=== PATIENT | male | born 1960 | race Two or more races ===

== ENCOUNTER 2017-10-09 10:22 | Inpatient (IN) | payer MEDICARE ==
[~2017-10-09] VITALS: Ht 175.3 cm; Wt 108.9 kg
[~2017-10-09 10:22] MED LIST: ACYCLOVIR400 MG ORAL; AUGMENTIN 875-1 EAC1 ORAL; AUGMENTIN TAB875 MG ORAL; NKM; NORCO 5-325 TA1 EACH ORAL; NORCO 7.5-3251 EACH ORAL
[2017-10-09] MEDS ORDERED: UNOBMED (10:49)
[2017-10-09 10:53] VITALS: BP 144/100
[2017-10-09 11:08] LABS: BASOPHILS % (AUTO) 1.2 % (0.0-2.0); EOSINOPHILS % (AUTO) 3.7 % (0.0-3.0); HEMATOCRIT 45.4 % (42.0-52.0); HEMOGLOBIN 15.1 G/DL (14.2-18.0); LYMPHOCYTES % (AUTO) 22.9 % (20.0-45.0); MEAN CORPUSCULAR VOLUME 89 FL (80-99); MONOCYTES % (AUTO) 8.3 % (1.0-10.0); NEUTROPHILS % (AUTO) 63.9 % (45.0-75.0); PLATELET COUNT 214 K/UL (150-450); RED BLOOD COUNT 5.09 M/UL (4.70-6.10); RED CELL DISTRIBUTION WIDTH 13.4 % (11.6-14.8); WHITE BLOOD COUNT 8.4 K/UL (4.8-10.8)
[2017-10-09] MEDS ORDERED: Clindamycin 300mg/ml vial inj IV ONE (11:15)
[2017-10-09 11:22] LABS: INR 1.2 (0.9-1.1)
[2017-10-09 11:30] LABS: ANION GAP 12 mmol/L (5-15); BLOOD UREA NITROGEN 22 mg/dL (7-18); CALCIUM 8.9 MG/DL (8.5-10.1); CARBON DIOXIDE 22 MMOL/L (21-32); CHLORIDE 107 MMOL/L (98-107); POTASSIUM 3.7 MMOL/L (3.5-5.1); SODIUM 141 MMOL/L (136-145)
[2017-10-09 11:46] LABS: ALANINE AMINOTRANSFERASE 49 U/L (12-78); ALBUMIN 3.8 G/DL (3.4-5.0); ALBUMIN/GLOBULIN RATIO 0.8 (1.0-2.7); ALKALINE PHOSPHATASE 138 U/L (46-116); ASPARTATE AMINO TRANSFERASE 44 U/L (15-37); BILIRUBIN,TOTAL 1.1 MG/DL (0.2-1.0); CKMB 4.8 NG/ML (0.0-3.6); CREATINE KINASE 622 U/L (26-308)
[2017-10-09 11:48] LABS: BILIRUBIN,DIRECT 0.4 MG/DL (0.0-0.3)
[2017-10-09] MEDS ORDERED: Nitroglycerin 2% oint pkt TOPIC ONE (12:15)
--- NOTE | 2017-10-09 12:29 | Diagnostic Imaging Report ---
EXAM: XR Chest, 1 View CLINICAL HISTORY: SOB TECHNIQUE: Frontal view of the chest. COMPARISON: No relevant prior studies available. FINDINGS: Lungs: No consolidation. Pleural space: Unremarkable. No pneumothorax. Heart: Cardiomegaly. Mediastinum: Unremarkable. Bones/joints: No acute fracture. IMPRESSION: No acute cardiopulmonary disease.
[2017-10-09 12:55] VITALS: BP 142/121
--- NOTE | 2017-10-09 13:58 | Emergency Room Report ---
History of Present Illness General Chief Complaint: Dyspnea/Respdistress Source: Patient Present Illness [facility] This patient states that for the past 4 months he has had an infection in his right ear. This is a separate complaint. He states he has seen his primary care physician he did give them some topical drops that were antibiotics that did not work. He also complains of shortness of breath and dyspnea on exertion for the past month. He states that the symptoms are worse at night. He is also noted over the past week that he has developed swelling in both of his legs. He denies recent illness. He denies cough or congestion. He denies fever or chills. He denies chest pain or abdominal pain. He has no other complaints. Allergies: Coded Allergies: No Known Allergies (Unverified , 09/21/12) Patient History Past Medical History: see triage record, other - psoriasis Social History: Denies: smoking, alcohol use, drug use Reviewed Nursing Documentation: PMH: Agreed; PSxH: Agreed Nursing Documentation-PMH Past Medical History: No Stated History Hx Cardiac Problems: No Hx Cancer: No Hx Gastrointestinal Problems: Yes Review of Systems All Other Systems: negative except mentioned in HPI Physical Exam Vital Signs Date Time Temp Pulse Resp B/P (MAP) Pulse Ox O2 Delivery O2 Flow Rate FiO2 10/09/17 10:26 97.3 105 18 158/82 98 Room Air 97.3 Sp02 EP Interpretation: reviewed, normal General Appearance: no apparent distress, alert, GCS 15, non-toxic Head: normocephalic, atraumatic Eyes: bilateral eye normal inspection, bilateral eye PERRL ENT: hearing grossly normal, normal pharynx, no angioedema, normal voice Neck: full range of motion, supple/symm/no masses Respiratory: chest non-tender, lungs clear, normal breath sounds, no respiratory distress, no retraction, no accessory muscle use, speaking full sentences Cardiovascular #1: no edema, tachycardia, irregularly irregular Gastrointestinal: normal bowel sounds, non tender, soft, non-distended, no guarding, no rebound Rectal: deferred Musculoskeletal: back normal, normal range of motion, non-tender Neurologic: alert, oriented x3, responsive, motor strength/tone normal, sensory intact, speech normal Psychiatric: judgement/insight normal, memory normal, mood/affect normal, no suicidal/homicidal ideation Skin: normal color, no rash, warm/dry, well hydrated Medical Decision Making Diagnostic Impression: Primary Impression: CHF (congestive heart failure) Additional Impressions: Atrial fibrillation with RVR Cardiomegaly ER Course This patient has a new diagnosis of atrial fibrillation. He also has a slightly rapid ventricular response with rates in the low 100s. He is also found to have significant cardiomegaly with physical exam evidence of right- sided heart failure. I'm concerned that this patient possibly had a myocardial infarction in the past month. Troponin is indeterminate. This patient will be admitted to telemetry for further evaluation and treatment by cardiology. Laboratory Tests Test 10/09/17 10:50 White Blood Count 8.4 K/UL (4.8-10.8) Red Blood Count 5.09 M/UL (4.70-6.10) Hemoglobin 15.1 G/DL (14.2-18.0) Hematocrit 45.4 % (42.0-52.0) Mean Corpuscular Volume 89 FL (80-99) Mean Corpuscular Hemoglobin 29.7 PG (27.0-31.0) Mean Corpuscular Hemoglobin Concent 33.3 G/DL (32.0-36.0) Red Cell Distribution Width 13.4 % (11.6-14.8) Platelet Count 214 K/UL (150-450) Mean Platelet Volume 7.5 FL (6.5-10.1) Neutrophils (%) (Auto) 63.9 % (45.0-75.0) Lymphocytes (%) (Auto) 22.9 % (20.0-45.0) Monocytes (%) (Auto) 8.3 % (1.0-10.0) Eosinophils (%) (Auto) 3.7 % (0.0-3.0) H Basophils (%) (Auto) 1.2 % (0.0-2.0) Prothrombin Time 12.4 SEC (9.30-11.50) H Prothrombin Time INR 1.2 (0.9-1.1) H PTT 27 SEC (23-33) Sodium Level 141 MMOL/L (136-145) Potassium Level 3.7 MMOL/L (3.5-5.1) Chloride Level 107 MMOL/L (98-107) Carbon Dioxide Level 22 MMOL/L (21-32) Anion Gap 12 mmol/L (5-15) Blood Urea Nitrogen 22 mg/dL (7-18) H Creatinine 1.0 MG/DL (0.55-1.30) Estimate Glomerular Filtration Rate > 60 mL/min (>60) Glucose Level 114 MG/DL (74-106) H Calcium Level 8.9 MG/DL (8.5-10.1) Total Bilirubin 1.1 MG/DL (0.2-1.0) H Direct Bilirubin 0.4 MG/DL (0.0-0.3) H Aspartate Amino Transferase (AST) 44 U/L (15-37) H Alanine Aminotransferase (ALT) 49 U/L (12-78) Alkaline Phosphatase 138 U/L (46-116) H Total Creatine Kinase 622 U/L (26-308) H Creatine Kinase MB 4.8 NG/ML (0.0-3.6) H Creatine Kinase MB Relative Index 0.7 Troponin I 0.039 ng/mL (0.000-0.056) Pro-B-Type Natriuretic Peptide 2352 pg/mL (0-125) H Total Protein 8.3 G/DL (6.4-8.2) H Albumin 3.8 G/DL (3.4-5.0) Globulin 4.5 g/dL Albumin/Globulin Ratio 0.8 (1.0-2.7) L EKG Diagnostic Results Rate: normal Rhythm: other - Atrial fibrillation ST Segments: no acute changes Rhythm Strip Diag. Results EP Interpretation: yes Rate: 100's Rhythm: no PVC's, other - PVC's, A.fib Chest X-Ray Diagnostic Results Chest X-Ray Diagnostic Results : Chest X-Ray Ordered: Yes # of Views/Limited/Complete: 1 View Indication: Shortness of Breath EP Interpretation: Yes Interpretation: other - Cardiomegaly Last Vital Signs Date Time Temp Pulse Resp B/P (MAP) Pulse Ox O2 Delivery O2 Flow Rate FiO2 10/09/17 12:55 97.8 96 28 142/121 96 Room Air 97.8 Disposition: ADMITTED INPATIENT Condition: Serious Referrals: NON PHYSICIAN (PCP) Cindy Marie DO Oct 09, 2017 13:58
[2017-10-09 14:00] VITALS: BP 121/96
[2017-10-09] MEDS ORDERED: dilTIAZem HCl 30mg tab ORAL ONE (14:00)
[2017-10-09 16:01] VITALS: BP 134/82
[2017-10-09 17:33] VITALS: BP 139/80
[2017-10-09 20:00] VITALS: BP 152/95
[2017-10-09] MEDS ORDERED: NAPROXEN250 M1 PO (20:01)
[2017-10-09] MEDS ORDERED: Heparin 5000 units/ml inj SUBQ SCH (21:00)
--- NOTE | 2017-10-09 21:40 | History & Physical ---
History and Physical History & Physicial [id number] afib with rvr chf obesity htn severe otitis externa echo clinda and otic drops rate control ac per cards Alia Wilson DO Oct 09, 2017 21:40
[2017-10-09] MEDS ORDERED: Metoprolol Tartrate 50mg tab ORAL SCH (22:30)
[2017-10-09] MEDS ORDERED: Metoprolol Tartrate 10 MG in D5W 55 ML IVPB SCH (22:30)
[2017-10-09] MEDS ORDERED: Heparin 5000 units/ml inj IV SCH (22:30)
--- NOTE | 2017-10-09 22:45 | History and Physical Report ---
DATE OF ADMISSION: 10/09/2017 REASON FOR ADMISSION: Shortness of breath, lower extremity swelling. HISTORY OF PRESENT ILLNESS: This is a 57-year-old gentleman, who states he developed severe pain in his right ear, lower extremity swelling, and shortness of breath. He came to the emergency room, was found to be in atrial fibrillation. He says he has no history of atrial fibrillation. He has a history of hypertension, no diabetes, suspected underlying obstructive sleep apnea, but does not use CPAP at night. He was given some ear drops for his ear, but he has got purulent bloody discharge at this time. MEDICATIONS: Pre-hospital and present medications are reviewed, reconciled, documented in electronic medical record by dose, frequency, and route. SOCIAL HISTORY: Negative for tobacco. Occasional alcohol. No drugs. FAMILY HISTORY: Noncontributory. PHYSICAL EXAMINATION: At the time my exam, he is alert. He is oriented. He is in no acute respiratory distress. His oropharynx is moist. He has poor dentition. He has purulent bloody discharge from his right ear. His neck is supple. He is obese. His lungs have bilateral crackles. His heart is irregularly irregular with an audible murmur. Abdomen is soft, nontender. Positive bowel sounds. Extremities with positive lower extremity edema. LABORATORY AND DIAGNOSTIC DATA: White count 8.4, hemoglobin 15.1, and platelets are 214,000. His sodium is 141, potassium 3.7, chloride 7, bicarb 22, BUN 22, creatinine 1, glucose is 114. First troponin is 0.039. His alkaline phosphatase is 138. BNP is mildly elevated at 2352. His chest x-ray from today demonstrates as negative. ASSESSMENT AND PLAN: 1. Severe otitis externa. 2. Atrial fibrillation. 3. Mild congestive heart failure. 4. Obesity. 5. Suspect underlying obstructive sleep apnea. 6. Hypertension. PLAN: For the patient, we will start him on antibiotics as well as otic drops. We will need ENT evaluation. Watch I's and O's, 2D echo, rate control, and we will discuss anticoagulation with Dr. Collins, who has been called to see the patient in consultation. He apparently did have AFib and RVR when he was admitted, given diltiazem x1 and we will monitor his rate and control it as needed. Alia Wilson D.O. DR: DORA JOB#: [id number] CC:
--- NOTE | 2017-10-09 23:45 | Consultation ---
DATE OF CONSULTATION: 10/09/2017 CARDIOLOGY CONSULTATION CONSULTING PHYSICIAN: Joaquín Collins M.D. REQUESTING PHYSICIAN: Aron More M.D. REASON FOR CONSULTATION: Atrial fibrillation with increased ventricular response. HISTORY OF PRESENT ILLNESS: This is a male, age 57, with no known prior cardiac history. He has had a right ear infection for some time and has not had response to topical antibiotics. Over the past week, he has developed progressive shortness of breath and decreased exercise tolerance progressing to shortness of breath at rest. His symptoms appear to be worse at night when lying flat and have been accompanied by progressive leg swelling in the past week as well. He denies chest pressure. He denies apparent palpitations. He has not had any recent upper respiratory illness, no fevers, no chills. He denies nausea, vomiting, or diarrhea, or genitourinary symptoms. PAST MEDICAL HISTORY: Psoriasis. MEDICATIONS: Prior to admission, none. ALLERGIES: None. SOCIAL HISTORY: Denies smoking, alcohol, or substance abuse. REVIEW OF SYSTEMS: A 10-point review of systems performed, all systems negative other than noted above. PHYSICAL EXAMINATION: GENERAL: He is in moderate distress with shortness of breath. VITAL SIGNS: Blood pressure 158/82, pulse 105, respirations 18, and afebrile. HEENT: Normocephalic, atraumatic. Conjunctivae pink. Oropharynx clear. Mucous membranes moist. NECK: Supple. Jugular venous pressure difficult to assess due to body habitus. LUNGS: Diminished breath sounds. Few rales. CARDIAC: Irregularly irregular rhythm. Normal S1, S2 with no obvious murmur, rub, or gallop. ABDOMEN: Normal S1, S2 with no obvious murmur, rub, or gallop. ABDOMEN: Soft, nontender. No ascites. EXTREMITIES: With 1+ bilateral pitting edema. NEUROLOGIC: Symmetric strength. No asterixis. LABORATORY AND DIAGNOSTIC DATA: Chest x-ray, cardiomegaly, mildly increased pulmonary venous pressures. EKG, atrial fibrillation, rapid ventricular rate, nonspecific ST-T wave changes. Atrial fibrillation, occasional PVC, nonspecific ST-T wave change. Troponin negative. White count 8.4, hemoglobin 15.1, troponin 0.039. Pro-natriuretic peptide 2300. IMPRESSION: 1. New onset atrial fibrillation. 2. Acute diastolic congestive heart failure, possible recent myocardial infarction and ongoing myocardial ischemia. PLAN: 1. Cardiac monitoring. Anticoagulation, for cardioembolic prophylaxis. 2. Beta-raul for rate control. 3. Echocardiogram. 4. Lipid panel. 5. Check venous duplex scan. 6. Thyroid function. 7. Diuresis with caution. 8. Further recommendations to follow once diagnostic studies available. Joaquín Collins M.D. DR: JESICA JOB#: [id number] CC:
[2017-10-10] VITALS: BP 136/72
[2017-10-10 00:33] LABS: BASOPHILS % (AUTO) 1.1 % (0.0-2.0); HEMATOCRIT 44.5 % (42.0-52.0); HEMOGLOBIN 14.6 G/DL (14.2-18.0); LYMPHOCYTES % (AUTO) 24.7 % (20.0-45.0); MEAN CORPUSCULAR VOLUME 89 FL (80-99); MONOCYTES % (AUTO) 7.1 % (1.0-10.0); NEUTROPHILS % (AUTO) 61.2 % (45.0-75.0); PLATELET COUNT 198 K/UL (150-450); RED BLOOD COUNT 5.03 M/UL (4.70-6.10); RED CELL DISTRIBUTION WIDTH 13.7 % (11.6-14.8)
[2017-10-10] MEDS: Heparin 25,000u/D5W 500ml 500 ML IV SCH ×2 (00:55→14:30)
[2017-10-10 04:00] VITALS: BP 129/85
[2017-10-10 07:50] LABS: EOSINOPHILS % (AUTO) 4.3 % (0.0-3.0); HEMATOCRIT 44.6 % (42.0-52.0); HEMOGLOBIN 14.6 G/DL (14.2-18.0); MEAN CORPUSCULAR VOLUME 90 FL (80-99); MONOCYTES % (AUTO) 7.6 % (1.0-10.0); NEUTROPHILS % (AUTO) 63.1 % (45.0-75.0); PLATELET COUNT 193 K/UL (150-450); RED BLOOD COUNT 4.98 M/UL (4.70-6.10); RED CELL DISTRIBUTION WIDTH 13.9 % (11.6-14.8); WHITE BLOOD COUNT 8.1 K/UL (4.8-10.8)
[2017-10-10 08:22] LABS: ANION GAP 12 mmol/L (5-15); BLOOD UREA NITROGEN 24 mg/dL (7-18); CALCIUM 8.9 MG/DL (8.5-10.1); CARBON DIOXIDE 23 MMOL/L (21-32); CHLORIDE 105 MMOL/L (98-107); CREATININE 1.2 MG/DL (0.55-1.30); POTASSIUM 4.3 MMOL/L (3.5-5.1); SODIUM 140 MMOL/L (136-145)
[2017-10-10] MEDS: Metoprolol 25mg tab ORAL SCH ×2 (08:22→20:49)
[2017-10-10] MEDS: Cortisporin OTIC Susp - 10ml RIGHT EAR SCH ×4 (08:22→20:49)
[2017-10-10 08:29] VITALS: BP 125/95
[2017-10-10 08:34] LABS: ALANINE AMINOTRANSFERASE 51 U/L (12-78); ALBUMIN 3.5 G/DL (3.4-5.0); ALKALINE PHOSPHATASE 135 U/L (46-116); ASPARTATE AMINO TRANSFERASE 41 U/L (15-37); BILIRUBIN,DIRECT 0.4 MG/DL (0.0-0.3); BILIRUBIN,TOTAL 1.2 MG/DL (0.2-1.0)
[2017-10-10] MEDS ORDERED: NS 275ml ONE (10:07)
[2017-10-10] MEDS ORDERED: Tubing IV Secondary IV ONE (10:07)
[2017-10-10 12:00] VITALS: BP 139/97
[2017-10-10 16:00] VITALS: BP 136/98
--- NOTE | 2017-10-10 19:56 | Pulmonology Progress Note ---
Assessment/Plan Assessment/Plan 1. Severe otitis externa. 2. Atrial fibrillation. 3. Mild congestive heart failure. 4. Obesity. 5. Suspect underlying obstructive sleep apnea. 6. Hypertension. 7. positive troponin heparin per rx abx for otitis diuresis rate control troponins trending down pain control fu echo when available duplex pending as well Subjective Constitutional: Reports: no symptoms HEENT: Repors: discharge Respiratory: Reports: no symptoms Cardiovascular: Reports: no symptoms Gastrointestinal/Abdominal: Reports: no symptoms Psychiatric: Reports: no symptoms Hematologic: Reports: no symptoms Allergies: Coded Allergies: No Known Allergies (Unverified , 09/21/12) Subjective still with afib rate controlled strated on heparin no bleeding reduced drainage from right ear tolerting po no cp decreased edema Objective Last 24 Hour Vital Signs Date Time Temp Pulse Resp B/P (MAP) Pulse Ox O2 Delivery O2 Flow Rate FiO2 10/10/17 16:00 88 10/10/17 16:00 97.2 86 22 136/98 (111) 96 97.2 10/10/17 12:00 97.3 79 22 139/97 (111) 96 97.3 10/10/17 12:00 86 10/10/17 09:08 Nasal Cannula 2.0 10/10/17 08:29 97.7 84 20 125/95 (105) 96 97.7 10/10/17 08:22 84 125/95 10/10/17 08:00 84 10/10/17 04:00 97.3 92 22 129/85 (100) 100 97.3 10/10/17 04:00 80 10/10/17 01:14 Nasal Cannula 3.0 10/10/17 00:00 98.1 92 17 136/72 (93) 95 98.1 10/10/17 00:00 93 10/10/17 00:00 97 136/72 10/09/17 23:32 97 136/72 10/09/17 20:00 110 10/09/17 20:00 96.4 64 20 152/95 (114) 99 96.4 Intake and Output 10/09/17 10/10/17 19:00 07:00 Intake Total 20 ml 593.41 ml Output Total 1000 ml Balance 20 ml -406.59 ml Intake Oral 20 ml 240 ml IV Total 353.41 ml Output Urine Total 1000 ml General Appearance: WD/WN HEENT: atraumatic, other - right ear purulent drainage Respiratory/Chest: lungs clear Cardiovascular: irregularly irregular, edema Abdomen: no organomegaly, non distended Skin: no rash Neurologic/Psychiatric: no motor/sensory deficits, abnormal gait, alert, oriented x 3 Laboratory Tests 10/10/17 00:15: White Blood Count 9.0, Red Blood Count 5.03, Hemoglobin 14.6, Hematocrit 44.5, Mean Corpuscular Volume 89, Mean Corpuscular Hemoglobin 29.0, Mean Corpuscular Hemoglobin Concent 32.8, Red Cell Distribution Width 13.7, Platelet Count 198, Mean Platelet Volume 7.7, Neutrophils (%) (Auto) 61.2, Lymphocytes (%) (Auto) 24.7, Monocytes (%) (Auto) 7.1, Eosinophils (%) (Auto) 6.0H, Basophils (%) (Auto ) 1.1, Activated Partial Thromboplast Time 53H 10/10/17 07:05: White Blood Count 8.1, Red Blood Count 4.98, Hemoglobin 14.6, Hematocrit 44.6, Mean Corpuscular Volume 90, Mean Corpuscular Hemoglobin 29.2, Mean Corpuscular Hemoglobin Concent 32.6, Red Cell Distribution Width 13.9, Platelet Count 193, Mean Platelet Volume 9.3, Neutrophils (%) (Auto) 63.1, Lymphocytes (%) (Auto) 24.0, Monocytes (%) (Auto) 7.6, Eosinophils (%) (Auto) 4.3H, Basophils (%) (Auto ) 1.0, Activated Partial Thromboplast Time 69H, Sodium Level 140, Potassium Level 4.3, Chloride Level 105, Carbon Dioxide Level 23, Anion Gap 12, Blood Urea Nitrogen 24H, Creatinine 1.2, Estimat Glomerular Filtration Rate > 60, Glucose Level 113H, Calcium Level 8.9, Magnesium Level 1.9, Total Bilirubin 1.2H , Direct Bilirubin 0.4H, Aspartate Amino Transf (AST/SGOT) 41H, Alanine Aminotransferase (ALT/SGPT) 51, Alkaline Phosphatase 135H, Troponin I 0.027, Pro -B-Type Natriuretic Peptide 1716H, Total Protein 8.0, Albumin 3.5, Thyroid Stimulating Hormone (TSH) 1.368 10/10/17 15:00: Troponin I 0.008 Current Medications Medications (Trade) Dose Ordered Sig/Mary Carmen Route PRN Reason Start Time Stop Time Status Last Admin Dose Admin Aspirin (ASA) 325 mg DAILY ORAL 10/10/17 09:00 11/09/17 08:59 10/10/17 08:20 Clindamycin HCl/ Dextrose 50 ml @ 100 mls/hr Q8H IV 10/09/17 23:00 10/16/17 22:59 10/10/17 14:10 Heparin Sodium/ Dextrose 500 ml @ 39.19 mls/ hr adjust per protocol IV 10/10/17 00:30 11/09/17 00:29 10/10/17 14:30 Metoprolol Tartrate (Lopressor) 25 mg Q12HR ORAL 10/10/17 09:00 11/09/17 08:59 10/10/17 08:22 Neomycin/ Polymyxin/ Hydrocortisone (Cortisporin OTIC) 4 drop FOUR TIMES A DAY RIGHT EAR 10/10/17 09:00 10/17/17 08:59 10/10/17 17:05 Alia Wilson DO Oct 10, 2017 19:56
[2017-10-10 20:00] VITALS: BP 137/85
[2017-10-10] MEDS: Eliquis 2.5mg tablet ORAL SCH (23:32)
[2017-10-11] VITALS: BP 121/85
--- NOTE | 2017-10-11 00:31 | Progress Note ---
DATE: 10/10/2017 CARDIOLOGY PROGRESS NOTE SUBJECTIVE: The patient remains in atrial fibrillation. Early this morning, he had low rate with a pause of about 3.5 second. He was asymptomatic. He had received his oral dose of beta-raul. The patient remains on IV heparin for cardioembolic prophylaxis. He continues to have drainage from his right ear with associated pain. His shortness of breath is better, but has not resolved. OBJECTIVE: VITAL SIGNS: Blood pressure 137/85, pulse 90, respirations 20 and afebrile. LUNGS: Bilateral breath sounds with few rales. HEART: Irregularly irregular rhythm. Normal S1 and S2. ABDOMEN: Soft. EXTREMITIES: No edema. LABORATORY AND DIAGNOSTIC DATA: White count 8.1 and hemoglobin 14.6. Potassium 4.3, BUN 24, and creatinine 1.2. Pro-natriuretic peptide 1700. Troponin remain negative. TSH 1.3. IMPRESSION: 1. Acute otitis externa. 2. Atrial fibrillation with variable ventricular rate, newly diagnosed, chronicity unclear. 3. Acute diastolic congestive heart failure. 4. Hypertensive heart disease, still with elevated blood pressures. PLAN: 1. Lower dose of beta-raul in view of episodes of bradyarrhythmia. 2. Antibiotics per primary care physician. 3. Transition from IV heparin to oral Apixaban for long-term cardioembolic prophylaxis. 4. Consider cardioversion effort in 6 weeks. 5. Advance antihypertensive therapy. 6. Discontinue aspirin to decrease bleeding risk in this clinical setting. 7. Adjust diuretic dosing based on clinical parameters. Joaquín Collins M.D. DR: KIANA JOB#: [id number] CC:
[2017-10-11] MEDS: Heparin 25,000u/D5W 500ml 500 ML IV SCH ×3 (02:39→17:28)
[2017-10-11 04:00] VITALS: BP 141/79
[2017-10-11] MEDS ORDERED: Heparin 5000 units/ml inj IV ONE (05:15)
[2017-10-11] MEDS ORDERED: Heparin 25,000u/D5W 500ml 500 ML IV SCH (05:15)
[2017-10-11 08:00] VITALS: BP 139/74
[2017-10-11] MEDS: Metoprolol 25mg tab ORAL SCH ×2 (08:32→20:14)
[2017-10-11] MEDS: Eliquis 2.5mg tablet ORAL SCH ×2 (08:32→17:31)
[2017-10-11] MEDS: Cortisporin OTIC Susp - 10ml RIGHT EAR SCH ×4 (08:33→20:16)
[2017-10-11] MEDS ORDERED: Lisinopril 20mg tab ORAL SCH (09:00)
[2017-10-11 12:00] VITALS: BP 130/83
--- NOTE | 2017-10-11 13:09 | Pulmonology Progress Note ---
Assessment/Plan Assessment/Plan Assessment/Plan 1. Severe otitis externa. 2. Atrial fibrillation, RVR 3. Mild congestive heart failure. 4. Obesity. 5. Suspect underlying obstructive sleep apnea. 6. Hypertension. 7. troponin not significant heparin per rx; change to NOAC per cardiology abx for otitis rate control fu echo when available duplex pending as well Subjective Constitutional: Denies: fever, chills Respiratory: Denies: shortness of breath Cardiovascular: Denies: chest pain Allergies: Coded Allergies: No Known Allergies (Unverified , 09/21/12) Objective Last 24 Hour Vital Signs Date Time Temp Pulse Resp B/P (MAP) Pulse Ox O2 Delivery O2 Flow Rate FiO2 10/11/17 12:00 97.1 80 18 130/83 (99) 96 97.1 10/11/17 09:00 Nasal Cannula 2.0 10/11/17 08:32 139/74 10/11/17 08:32 95 139/74 10/11/17 08:00 97 10/11/17 08:00 98.1 95 20 139/74 (95) 99 98.1 10/11/17 04:00 89 10/11/17 04:00 98.0 81 20 141/79 (99) 98 98.0 10/11/17 00:00 85 10/11/17 00:00 97.0 85 26 121/85 (97) 96 97.0 10/10/17 21:00 Nasal Cannula 3.0 10/10/17 20:49 100 137/85 10/10/17 20:00 100 10/10/17 20:00 98.0 90 20 137/85 (102) 98 98.0 10/10/17 16:00 88 10/10/17 16:00 97.2 86 22 136/98 (111) 96 97.2 Intake and Output 10/10/17 10/11/17 19:00 07:00 Intake Total 881.09 ml 836.828 ml Output Total 500 ml 2190 ml Balance 381.09 ml -1353.172 ml Intake Oral 400 ml 350 ml IV Total 481.09 ml 486.828 ml Output Urine Total 500 ml 2190 ml # Voids 2 Objective R ear dc General Appearance: no acute distress Respiratory/Chest: lungs clear Cardiovascular: normal rate, irregularly irregular Laboratory Tests 10/10/17 15:00: Troponin I 0.008 10/10/17 23:35: Troponin I 0.019 10/11/17 04:10: Activated Partial Thromboplast Time 58H 10/11/17 11:20: Activated Partial Thromboplast Time 120H Current Medications Medications (Trade) Dose Ordered Sig/Mary Carmen Route PRN Reason Start Time Stop Time Status Last Admin Dose Admin Apixaban (Eliquis) 5 mg BID ORAL 10/10/17 23:30 11/09/17 23:29 10/11/17 08:32 Clindamycin HCl/ Dextrose 50 ml @ 100 mls/hr Q8H IV 10/09/17 23:00 10/16/17 22:59 10/11/17 06:57 Furosemide (Lasix) 20 mg DAILY IV 10/10/17 23:00 11/09/17 22:59 10/11/17 08:32 Heparin Sodium/ Dextrose 500 ml @ 37.013 mls/ hr adjust per protocol IV 10/11/17 12:45 11/10/17 12:44 10/11/17 13:02 Lisinopril (Prinivil) 20 mg DAILY ORAL 10/11/17 09:00 11/10/17 08:59 10/11/17 08:32 Metoprolol Tartrate (Lopressor) 25 mg Q12HR ORAL 10/10/17 09:00 11/09/17 08:59 10/11/17 08:32 Neomycin/ Polymyxin/ Hydrocortisone (Cortisporin OTIC) 4 drop FOUR TIMES A DAY RIGHT EAR 10/10/17 09:00 10/17/17 08:59 10/11/17 08:33 Potassium Chloride (K-Dur) 20 meq DAILY ORAL 10/11/17 09:00 11/10/17 08:59 10/11/17 08:32 Aron More MD Oct 11, 2017 13:09
[2017-10-11 16:00] VITALS: BP 127/94
[2017-10-11 20:00] VITALS: BP 135/101
[2017-10-12] VITALS: BP 141/91
[2017-10-12 04:00] VITALS: BP 132/89
[2017-10-12 04:12] LABS: BASOPHILS % (AUTO) 1.1 % (0.0-2.0); EOSINOPHILS % (AUTO) 5.9 % (0.0-3.0); HEMATOCRIT 44.6 % (42.0-52.0); HEMOGLOBIN 14.5 G/DL (14.2-18.0); LYMPHOCYTES % (AUTO) 28.2 % (20.0-45.0); MEAN CORPUSCULAR VOLUME 88 FL (80-99); MONOCYTES % (AUTO) 10.3 % (1.0-10.0); NEUTROPHILS % (AUTO) 54.5 % (45.0-75.0); PLATELET COUNT 202 K/UL (150-450); RED BLOOD COUNT 5.04 M/UL (4.70-6.10); RED CELL DISTRIBUTION WIDTH 13.6 % (11.6-14.8); WHITE BLOOD COUNT 7.7 K/UL (4.8-10.8)
--- NOTE | 2017-10-12 04:15 | Progress Note ---
DATE: 10/11/2017 CARDIOLOGY PROGRESS NOTE SUBJECTIVE: The patient has no new complaints. He is less short of breath. Still with ear pain. He remains in atrial fibrillation, rate down to 80s and 90s. OBJECTIVE: VITAL SIGNS: Blood pressure 130/83, pulse 80, respiratory rate 18. LUNGS: Diminished breath sounds. Irregularly irregular rhythm. Normal S1, S2. ABDOMEN: Soft. EXTREMITIES: Trace edema. DIAGNOSTIC DATA: Echocardiogram with moderate reduction in ejection fraction of around 35% and global hypokinesis. Venous duplex pending. IMPRESSION: 1. Acute on chronic systolic and diastolic congestive heart failure. 2. Otitis externa, acute. 3. Paroxysmal atrial fibrillation with increased ventricular response, now better rate controlled. 4. Hypertensive heart disease. PLAN: I would not further increase beta-raul dose in view of bradyarrhythmia noted on monitor yesterday on higher dose of metoprolol. We will advance anti-failure regimen namely lisinopril and continue diuresis. Cardioembolic prophylaxis with apixaban. Await venous duplex study. Antibiotics. Mobilization. Joaquín Collins M.D. DR: Paulie JOB#: [id number] CC:
[2017-10-12 04:37] LABS: ALANINE AMINOTRANSFERASE 38 U/L (12-78); ALBUMIN 3.4 G/DL (3.4-5.0); ALBUMIN/GLOBULIN RATIO 0.7 (1.0-2.7); ALKALINE PHOSPHATASE 129 U/L (46-116); ANION GAP 10 mmol/L (5-15); ASPARTATE AMINO TRANSFERASE 31 U/L (15-37); BLOOD UREA NITROGEN 22 mg/dL (7-18); CALCIUM 8.8 MG/DL (8.5-10.1); CARBON DIOXIDE 26 MMOL/L (21-32); CHLORIDE 103 MMOL/L (98-107); POTASSIUM 3.9 MMOL/L (3.5-5.1); SODIUM 139 MMOL/L (136-145)
[2017-10-12 08:00] VITALS: BP 139/89
[2017-10-12] MEDS: Cortisporin OTIC Susp - 10ml RIGHT EAR SCH ×2 (08:26→13:00)
[2017-10-12] MEDS: Eliquis 2.5mg tablet ORAL SCH (08:26)
[2017-10-12 08:27] VITALS: BP 139/89
[2017-10-12] MEDS: Metoprolol 25mg tab ORAL SCH (08:27)
[2017-10-12] MEDS ORDERED: Lisinopril 20mg tab ORAL SCH (09:00)
[2017-10-12] MEDS ORDERED: ELIQUIS2.5 MG ORAL (10:30)
[2017-10-12] MEDS ORDERED: LOPRESSOR25 M1 ORAL (10:30)
[2017-10-12] MEDS ORDERED: CORTISPORIN EAR10 ML RIGHT EAR (10:30)
[2017-10-12] MEDS ORDERED: AMOX TR-K CLV1 EAC2 ORAL (10:30)
[2017-10-12] MEDS ORDERED: FUROSEMIDE20 M1 ORAL (10:30)
[2017-10-12] MEDS ORDERED: LISINOPRIL20 MG ORAL (10:30)
[2017-10-12] MEDS ORDERED: POTASSIUM CHLO20 ME1 ORAL (10:30)
[2017-10-12] MEDS ORDERED: Augmentin 875mg Tab ORAL SCH (12:30)
--- NOTE | 2017-10-13 05:00 | Progress Note ---
DATE: 10/12/2017 CARDIOLOGY PROGRESS NOTE SUBJECTIVE: The patient is scheduled for discharge today. His ear drainage and pain have decreased. He has no shortness of breath. He remains in atrial fibrillation. Ventricular rates are controlled. OBJECTIVE: LUNGS: With diminished breath sounds. No wheezing. CARDIAC: Irregularly irregular. No S3. ABDOMEN: Soft. EXTREMITIES: No edema. IMPRESSION: 1. Acute on chronic systolic and diastolic congestive heart failure. 2. Otitis externa. 3. Paroxysmal atrial fibrillation now with adequate rate control. 4. Hypertensive heart disease with cardiomyopathy. PLAN: 1. Stable for discharge. 2. Outpatient followup to be arranged. 3. Maintain beta-raul for rate control, lisinopril for anti-failure and antihypertensive control, and apixaban for cardioembolic prophylaxis. Joaquín Collins M.D. DR: Paulie JOB#: [id number] CC:
--- NOTE | 2017-10-13 13:30 | Discharge Summary ---
Discharge Summary Discharge Summary _ DATE OF ADMISSION: 10/09/2017 DATE OF DISCHARGE: 10/12/2017 REASON FOR ADMISSION: 57 years old male with history of hypertension, presented to emergency room for evaluation. He reported shortness of breath and dyspnea on exertion for the past month. He reported that symptoms were worse at night. Over the last week he developed bilateral leg swelling. No recent illness. Denied cough, congestion . No fever or chills . No chest pain , no abdominal pain . Patient also reported infection in the right ear for the last 4 months. He seen his primary care provider , who was provided him with topical antibiotic drops without any significant improvement. Vital signs revealed tachycardia and elevated blood pressure. Laboratory workup revealed no leukocytosis, stable hemoglobin and hematocrit. Stable electrolytes and renal parameters. Troponin was negative. Pro BNP 2352. EKG revealed atrial fibrillation with rapid ventricular response. Chest x-ray showed cardiomegaly , no acute cardiopulmonary pathology . Patient admitted with diagnosis of f severe otitis externa, atrial fibrillation with rapid ventricular response, CHF, obesity, probably underlying obstructive sleep apnea, hypertension CONSULTANTS: [employer] HOSPITAL COURSE: Patient admitted to telemetry floor. Patient started on on antibiotics: systemic and topical. Heart rate was controlled with beta raul. [employer] closely followed. Anticoagulation for cardioembolic prophylaxis initially started with intravenous heparin , and then subsequently was converted to Eliquis for long- term anticoagulation. Patient started on beta raul and diuretic. Serial troponin were negative, times 4. EKG revealed no acute ischemic changes. Heart rate was controlled. TSH was within normal limits Echocardiogram revealed ejection fraction of 30-35% with global left ventricular hypokinesis, [id number] mitral regurgitation and right ventricular systolic pressure of 24. Anti-failure regimen was optimized . Lisinopril was added to beta raul , and diuretic was continued. Volumes and cardiorenal parameters were closely monitored. Aspirin was discontinued to decrease bleeding risk in this particular patient. Blood pressure was managed with beta raul and MINESH inhibitor , remained stable. Supplemental oxygen provided as needed to keep pulse oximetry above 92% ; pulmonary toilet was on standby as needed. Renal parameters and electrolytes were closely monitored, electrolytes corrected as needed. Renal parameters remained stable with diuretic. Pro BNP from 2352 down to 1755. Per [employer], atrial fibrillation was paroxysmal. Patient was clinically improved , pulse oximetry stable on room air, no visible shortness of breath, no ear pain. Patient was stable for discharge home. FINAL DIAGNOSES: Acute otitis externa New onset of atrial fibrillation Paroxysmal atrial fibrillation Atrial fibrillation with rapid ventricular response -resolved Hypertensive heart disease with cardiomyopathy (EF30%) Acute on chronic systolic and diastolic congestive heart failure Probably underlying obstructive sleep apnea Obesity DISCHARGE MEDICATIONS: See Medication Reconciliation list. DISCHARGE INSTRUCTIONS: Patient was discharged home, follow-up with her primary care provider in one week. Recommended sleep study as outpatient I have been assigned to dictate discharge summary for this account. I was not involved in the patient's management. Laquita Sibley NP Oct 13, 2017 13:30
== END 2017-10-12 13:10 | disposition home or self-care (01) | DRG 308 ==
LOC: EMR 11:00 → EDBEDREQ 17:12 → 2E 17:50
DX: I48.0 Paroxysmal atrial fibrillation (principal); I50.43 Acute on chronic combined systolic (congestive) and diastolic (congestive) heart failure; H60.501 Unspecified acute noninfective otitis externa, right ear; E66.9 Obesity, unspecified; I11.0 Hypertensive heart disease with heart failure; I34.0 Nonrheumatic mitral (valve) insufficiency; I42.9 Cardiomyopathy, unspecified; G47.33 Obstructive sleep apnea (adult) (pediatric)
CPT/HCPCS: 36415; 71045; 80048; 80053; 80076; 82248; 82550; 82553; 83735; 83880; 84443; 84484; 85025; 85610; 85730; 93005; 93306; 93970; J8499; S0077